=== PATIENT | female | born 1985 | race Caucasian/White ===

== ENCOUNTER 2021-06-03 03:38 | Emergency (ER) | payer MEDICAID ==
[~2021-06-03] VITALS: Ht 162.6 cm; Wt 68.2 kg
--- NOTE | 2021-06-03 04:19 | NUR ---
pt laying on ground in ambulance bay. pt states is more comfortable there than in a chair. advised pt ground was not clean.
[2021-06-03 05:20] LABS: CLARITY,URINE SLIGHTLY CLOUDY (Clear); COLOR,URINE YELLOW (Yellow); GLUCOSE, URINE NEGATIVE (Neg); KETONES,URINE NEGATIVE (Neg); LEUKOCYTE ESTERASE ,URINE MODERATE (Neg); NITRITES, URINE NEGATIVE (Neg); OCCULT BLOOD,URINE NEGATIVE (Neg); PH,URINE 5.5 (4.8-8.0); PROTEIN,URINE NEGATIVE (Neg); URINE HCG NEGATIVE (NEG); UROBILINOGEN,URINE 0.2 E.U/dL (0.2-1.0)
[2021-06-03 05:24] LABS: UA COLLECTION TYPE CLN CATCH MIDSTREAM
[2021-06-03 05:33] LABS: URINE AMPHETAMINE SCREEN POSITIVE (Neg); URINE BARBITUATE SCREEN NEGATIVE (Neg); URINE BENZODIAZEPINES SCREEN NEGATIVE (Neg); URINE CANNABINOID SCREEN POSITIVE (Neg); URINE COCAINE SCREEN NEGATIVE (Neg); URINE METHADONE SCREEN NEGATIVE (Neg); URINE OPIATE SCREEN NEGATIVE (Neg); URINE PHENCYCLIDINE SCREEN NEGATIVE (Neg)
[2021-06-03] MEDS ORDERED: ONDA4TAB6 PO (05:39)
[2021-06-03] MEDS ORDERED: ondansetron 4mg rapidly disintigrating tab PO ONE (05:40)
[2021-06-03 05:41] LABS: BACTERIA,URINE 2+ /HPF (Neg); MUCUS STRANDS MANY /LPF (Neg); RBC,URINE NONE SEEN /HPF (0-2); SQUAMOUS EPITHELIAL CELL,UR MANY /LPF (FEW); WBC,URINE 0-4 /HPF (0-4)
[2021-06-03] MEDS ORDERED: DOXYCYCLINE 100MG CAPSULE PO STA (06:01)
[2021-06-03] MEDS ORDERED: DOXY-411 PO (06:02)
[2021-06-03] MEDS ORDERED: dexamethasone 4mg tablet PO ONE (06:05)
[2021-06-03 06:13] VITALS: BP 110/74
== END 2021-06-03 06:15 | disposition home or self-care (01) ==
LOC: ER 03:41
DX: N39.0 Urinary tract infection, site not specified (principal); B34.9 Viral infection, unspecified; J02.9 Acute pharyngitis, unspecified; F15.10 Other stimulant abuse, uncomplicated; G89.29 Other chronic pain; F17.200 Nicotine dependence, unspecified, uncomplicated; F12.90 Cannabis use, unspecified, uncomplicated; Z88.2 Allergy status to sulfonamides; Z79.899 Other long term (current) drug therapy
CPT/HCPCS: 80305; 81001; 81025; 99284